=== PATIENT | male | born 1935 | race Caucasian/White ===

== ENCOUNTER → 2017-09-22 | Outpatient (CLI) | payer OTHER | LOC: BHFA 11:30 | PROVIDERS: ATTEND Internal Medicine Cardiovascular Disease | DX: I48.91 Unspecified atrial fibrillation (principal) ==

== ENCOUNTER → 2018-03-29 | Outpatient (CLI) | payer OTHER | LOC: BHFA 14:45 | PROVIDERS: ATTEND Internal Medicine Cardiovascular Disease | DX: I25.10 Atherosclerotic heart disease of native coronary artery without angina pectoris (principal); I10 Essential (primary) hypertension; I48.91 Unspecified atrial fibrillation ==

== ENCOUNTER 2018-05-29 06:36 | Inpatient (IN) | payer OTHER ==
[2018-05-29] MEDS ORDERED: ASPIRIN EC 325 MG TAB PO ONE (06:38)
[2018-05-29] MEDS ORDERED: diphenhydrAMINE 25 MG CAP PO ONE (06:38)
[2018-05-29] MEDS ORDERED: NS 1,000 ML IV ONE (06:38)
[2018-05-29] MEDS ORDERED: FAMOTIDINE 20 MG TAB PO ONE (06:38)
[2018-05-29] MEDS ORDERED: DIAZEPAM 5 MG TAB PO ONE (06:38)
[2018-05-29 07:26] LABS: PLATELET COUNT 88 10^3/uL (150-400)
[2018-05-29 07:35] LABS: INR 1.5 (0.83-1.16); PROTIME(PATIENT) 18.3 SEC (12.0-15.0)
[2018-05-29] MEDS ORDERED: fentaNYL 100 MCG/2 ML INJ ONE (07:36)
[2018-05-29] MEDS ORDERED: LIDOCAINE 1% 300 MG/30 ML SDV ONE (07:36)
[2018-05-29] MEDS ORDERED: MIDAZOLAM 2 MG/2 ML VIAL ONE (07:37)
--- NOTE | 2018-05-29 08:39 | PDPROPOC ---
Sedation Plan of Care Sedation Plan of Care: vital signs stable, mental status noted, patient educated of risks, benefits, alternatives, patient can tolerate sedation ASA Classification: ASA 2 Planned drugs: fentanyl, midazolam Mallampati Score: Class 1 Mallampati Reference Image: Patient passed 3-3-2 rule?: Yes
--- NOTE | 2018-05-29 08:39 | PDHPUP ---
History & Physical Update H&P update statement: This history and physical update is based on an assessment of the patient which was completed after admission or registration (within 24 hours), but prior to the surgery/procedure. H&P update: H&P reviewed & patient examined, no change in patient's condition since H&P completed
[2018-05-29] MEDS ORDERED: SUMAtriptan 50 MG TAB PO PRN (10:58)
[2018-05-29] MEDS ORDERED: TRIAMCINOLONE 0.1% 15 GM CRTUBE TP PRN (10:58)
[2018-05-29] MEDS ORDERED: ACETAMINOPHEN 325 MG TAB PO PRN (10:58)
[2018-05-29] MEDS ORDERED: SUMAtriptan 25 MG TAB PO PRN (12:30)
--- NOTE | 2018-05-29 12:58 | PDDXCAT ---
Diagnostic Cath Note - . Date: 05/29/18 Promotion Producer: Naman Indication: other (Heart failure with lower extremity swelling and renal failure ) - Procedure Procedure: right heart catheterization - Materials Left Heart Cath size: 5F Right Heart Cath size: 5F Right Heart Cath materials: PWP catheter - Findings-Right Heart Catheterization RA: 15 mm of mercury RV: 40/5 mm of mercury mean of 18 PA: 40/19 mm of mercury mean of 28 PAOP: 15 mm of mercury CO: 4.64 liters/minute Assessment: Lower extremity swelling associated with pulmonary artery pressure of 39/19 mm of mercury and wedge pressure 15 mm of mercury . Plan: Gentle hydration with creatinine of 2.0 and elevated BUN. Discontinue aldosterone inhibitor. Repeat assessment electrolytes in the morning. Patient Problems: Problems Problem Status Onset Dehiscence of fascia Acute Post-operative complication Acute
--- NOTE | 2018-05-29 13:39 | ECHO ---
[email or web address] [address] [address] Main: [phone] Fax: Transthoracic Echocardiogram Name: CARTER MERLOS MR#: [id number] Study Date: 05/29/2018 Study Time: 10:32 AM Date of : 1935 Age: 82 year(s) Height: 177.8 cm (70 in.) Weight: 83.46 kg (184 lb.) BSA: 2.01 m2 Gender: Male Examination: Limited Echo Indication: LTD to evaluate for constriction versus restriction Image Quality: Adequate Contrast: Requested by: Sachin Florence BP: 112 mmHg/77 mmHg Heart Rate: Rhythm: Indication: LTD to evaluate for constriction versus restriction Procedure Staff Fish And Wildlife Warden: Maya Powers [facility] Reading Physician: Flor Romero MD Requesting Provider: Conclusions: This is a directed study to assess for the presence of pericardial constriction verses restrictive pathophysiology. Normal LV systolic function. Paradoxical septal motion consistent with pacemaker activation but not consistent with interventricular independence. Mildly dilated right ventricle with preserved RV systolic function. Severe biatrial dilation. Doppler indices are not suggestive of either constrictive or restrictive physiology. There is no pericardial effusion or pericardial thickening. Measurements: Chambers Valvular Assessment AV/MV Valvular Assessment TV/PV Normal Normal Normal Name Value Range Name Value Range Name Value Range MV E Vmax: 0.78 m/s ( - ) MV A Vmax: 0.40 m/s ( - ) MV E/A: 1.95 ( - ) Continued Measurements: Chambers Valvular Assessment AV/MV Name Value Name Value LADs Lon.3 cm MV DecTime: 232 m/s LA Area: 33.2 cm2 MV E' Septal: 0.08 m/s MV E/E' Septal: 9.60 MV E/E' Lateral: 9.60 Findings: Left Ventricle: Normal global systolic LV function. There is paradoxic septal motion suggestive of bundle branch Patient: CARTER MERLOS Study Date: 05/29/2018 Page 1 of 2 10:32 AM block, paced cardiac rhythm, or prior cardiac surgery. Right Ventricle: Mildly dilated right ventricle. Normal RV function. Left Atrium: The left atrium is severely dilated. Right Atrium: The right atrium is severely dilated. Exam Comments: No pericardial effusion. No obvious thickening of the pericardium. No respiratory variation of the MV and TV inflow velocities. MV deceleration time 232msec. There is a small increase in the a wave in the hepatic doppler and an increase in the inspiratory forward velocities. Medial and lateral e' velocities are equal. (No Signature Object) Patient: CARTER MERLOS Study Date: 05/29/2018 Page 2 of 2 10:32 AM [id number]
[2018-05-29] MEDS: NS 1,000 ML IV SCH ×2 (14:00→20:28)
--- NOTE | 2018-05-29 15:57 | PDMN ---
Medical Necessity Medical necessity: MCG M190 Heart Failure, A-2 days: 82 yo s/p cardiac cath for indication of heart failure w/ renal failure w/ extremity swelling. Pulm artery pressure 39/19. Pt requiring O2 to keep sats>90% IVF for renal fx. Cont tele monitoring. Plt count 88. Admit to IP for ongoing tx and monitoring of the above per cardiology.
[2018-05-29] MEDS: DILTIAZEM CD 120 MG CAP PO SCH (20:28)
[2018-05-29] MEDS: PROPRANOLOL HCL 20 MG TAB PO SCH (20:28)
[2018-05-29] MEDS ORDERED: WARFARIN SODIUM 4 MG TAB PO SCH (21:00)
[2018-05-29] MEDS ORDERED: TAMSULOSIN HCL 0.4 MG CAP PO SCH (21:00)
[2018-05-30] MEDS: DILTIAZEM CD 120 MG CAP PO SCH (08:16)
[2018-05-30] MEDS: PROPRANOLOL HCL 20 MG TAB PO SCH (08:16)
[2018-05-30] MEDS ORDERED: ALLOPURINOL 300 MG TAB PO SCH (09:00)
[2018-05-30] MEDS ORDERED: CITALOPRAM 20 MG TAB PO SCH (09:00)
[2018-05-30] MEDS ORDERED: CHOLECALCIFEROL VIT D3 1,000 UNITS TAB PO SCH (09:00)
[2018-05-30] MEDS ORDERED: PRIMIDONE 50 MG TAB PO SCH (09:00)
--- NOTE | 2018-05-30 15:30 | ASMTCMCOM ---
CM Note CM Note Notes: Met with patient and to discuss disposition plan. Patient uses O2 at night at baseline, has supportive . They decline the need for HHC upon discharge. Case Management available for changes/needs. Plan: Anticipate Independent Date Signed: 05/30/2018 03:30 PM Electronically Signed By:Karol Lopez RN
[2018-05-30 16:09] VITALS: BP 104/74
--- NOTE | 2018-05-31 13:55 | PDDCSUM ---
Discharge Summary Discharge Summary: Date of admission 05/29/2018 Date of discharge 05/30/2018 Admission diagnosis: 1. Acute renal failure Discharge diagnosis: 1. Acute renal failure resolving 2. Atrial fibrillation with permanent pacemaker 3. Bilateral lower extremity swelling query lymphedema 4. Permanent pacemaker 5. Bladder cancer 6. Alcohol use Procedures done during this hospitalization right heart catheterization, echocardiogram for constriction/restriction, renal ultrasound, lower extremity ultrasound. Hospital course: Patient was admitted to the hospital electively after a diagnostic right heart catheterization. Patient was admitted for worsening lower extremity swelling and worsening renal function in the setting of diastolic heart failure, metastatic bladder cancer, high risk medication use including Aldactone, Lasix, Celebrex. Right heart catheterization showed normal right heart hemodynamics with mild pulmonary hypertension and normal to low filling pressures. Baseline creatinine was 2.0 with a BUN of over 50. Patient was administered 2 L of normal saline. Creatinine fell to 1.5 with marked improvement in clinical symptoms. Peripheral swelling persisted left greater than right. Ultrasound of the kidney showed them to be normal size. There is no hydronephrosis with a ureteral stent seen. Liver was significantly enlarged with associated gallstones and some nonspecific thickening of the gallbladder. On examination he did have some tenderness to deep palpation. Liver function tests within normal limits. He had no difficulty with p. O. Intake. Medications were adjusted. In particular we stopped his Aldactone, Celebrex, Lasix. His amlodipine was discontinued. Blood pressure and hemodynamics remained stable. Oxygenation remained stable. He of was up ambulating without limitations. He is discharged today in stable/improving condition with follow-up arranged with a lymphedema specialist to start working on drainage of the leg. He will follow up with me in 1 week with repeat basic metabolic panel. Questions were answered with him and his . Physical examination revealed blood pressure 106/70. Heart rate was 70 and paced. He had no JVP at 90 degrees. Chest was clear He was on supplemental oxygen His abdomen was distended and tympanitic. There was mild tenderness to deep palpation in the right upper quadrant. He had no rebound or guarding. Extremities revealed 3+ edema left greater than right. Femoral pulses were +2 and equal Puncture site in the right forearm was healing well without ecchymosis erythema or edema.
== END 2018-05-30 18:23 | disposition home or self-care (01) | DRG 683 ==
LOC: FCATH 06:36 → F2W 09:26 → OBSVTOIN 11:02 → F2W 11:55
PROVIDERS: ADMIT Internal Medicine Interventional Cardiology; ATTEND Internal Medicine Interventional Cardiology
PROC: 4A023N6 Measurement of Cardiac Sampling and Pressure, Right Heart, Percutaneous Approach (ICD-10-PCS; principal; 2018-05-29)
DX: N17.9 Acute kidney failure, unspecified (principal); I11.0 Hypertensive heart disease with heart failure; I50.30 Unspecified diastolic (congestive) heart failure; I48.91 Unspecified atrial fibrillation; I27.20 Pulmonary hypertension, unspecified; K80.20 Calculus of gallbladder without cholecystitis without obstruction; I25.10 Atherosclerotic heart disease of native coronary artery without angina pectoris; E78.5 Hyperlipidemia, unspecified; Z95.0 Presence of cardiac pacemaker
CPT/HCPCS: J1644; J2250; J3010

== ENCOUNTER 2018-06-27 14:58 | Inpatient (IN) | payer OTHER ==
[2018-06-27] MEDS ORDERED: TEMAZEPAM 15 MG CAP PO PRN (16:45)
[2018-06-27] MEDS ORDERED: ONDANSETRON DISINTEGRATING 4 MG TAB PO PRN (16:45)
[2018-06-27] MEDS ORDERED: ONDANSETRON 4 MG/2 ML VIAL IVP PRN (16:45)
[2018-06-27] MEDS ORDERED: FUROSEMIDE 100 MG/10 ML VIAL IVP ONE (16:48)
--- NOTE | 2018-06-27 17:11 | PDCARPN ---
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 #. anasarca: good output with single dose of IV lasix [address] Florence will give an additional 80 mg IV lasx due to ongoing edema #. pulmonary htn: 05/29/18 RHC shows RA 15, RV 15/5 mean 18, PA 40/19 mean 28, wedge 15 c/w mild- mod pulmonary htn continue diuresis #. VHD: last echo from 03/19 shows stable mod AR, severe TR, mild MR will follow with serial echoes #. urothelial CA: followed at [facility] #. permanent AF: rates appear controlled continue Warfarin and Dilt CD #. CKD: Cr appears stable BMP ordered for this AM #. lymphedema: has been seeing lymphedema specialist in O/P setting #. DVT ppx: Warfarin and early ambulation #. FEN: K+ protocol/ cardiac diet/ fluid restrict #. dispo: ongoing inpt due to need for IV diuresis 06/28/18 09:43 Subjective: No pnd/orthopnea currently. No cp/palps, presyncope/syncope. Time Spent with Patient: greater than 25 minutes Time Spent with Patient: Greater than 25 minutes spent on this patients care, greater than 50% of time spent counseling, educating, and coordinating care regarding the above mentioned plan. Result Diagrams: 06/27/18 17:25 06/27/18 17:25 EKG: V-paced Echocardiogram: reviewed - Physical Exam Constitutional: no apparent distress Eyes: anicteric sclera Ears, Nose, Mouth, Throat: moist mucous membranes Cardiovascular: systolic murmur, irregularly irregular Respiratory: clear to auscultate bilat, no crackles Gastrointestinal: normoactive bowel sounds Genitourinary: No montelongo in urethra Skin: other (3+ edema) Neurologic: AAOx3 Psychiatric: cooperative, interactive ICD10 Worksheet Patient Problems: Problems Problem Status Onset Chronic Disease Mgmt/Transitional Care Acute Dehiscence of fascia Acute Post-operative complication Acute
[2018-06-27 19:20] LABS: PLATELET COUNT 90 10^3/uL (150-400)
[2018-06-27 19:28] LABS: INR 2.59 (0.83-1.16); PROTIME(PATIENT) 27.7 SEC (12.0-15.0)
[2018-06-27] MEDS: WARFARIN SODIUM 4 MG TAB PO SCH (20:31)
[2018-06-27] MEDS: PROPRANOLOL HCL 40 MG TAB PO SCH (20:32)
[2018-06-27] MEDS ORDERED: PRIMIDONE 50 MG TAB PO SCH (22:00)
[2018-06-28 05:08] LABS: INR 2.74 (0.83-1.16); PROTIME(PATIENT) 28.9 SEC (12.0-15.0)
[2018-06-28] MEDS ORDERED: ACETAMINOPHEN 325 MG TAB PO PRN (07:23)
[2018-06-28] MEDS: CITALOPRAM 20 MG TAB PO SCH (08:43)
[2018-06-28] MEDS: ALLOPURINOL 300 MG TAB PO SCH (08:43)
[2018-06-28] MEDS: MULTIVITAMINS 1 EACH TAB PO SCH (08:43)
[2018-06-28] MEDS: CHOLECALCIFEROL VIT D3 2,000 UNITS TAB/CAP PO SCH (08:43)
[2018-06-28] MEDS: PSYLLIUM METAMUCIL 1 PKT PO SCH (08:43)
[2018-06-28] MEDS ORDERED: PROPRANOLOL HCL 60 MG PO SCH (09:00)
[2018-06-28] MEDS: PRIMIDONE 50 MG TAB PO SCH ×2 (09:23→20:58)
[2018-06-28] MEDS: PROPRANOLOL HCL 40 MG TAB PO SCH ×2 (09:24→20:57)
--- NOTE | 2018-06-28 09:36 | ASMTCMCOM ---
CM Note CM Note Notes: Pt is a 82 year old M, lives with who is supportive. Presents with CHF, edema, and renal insufficiency. Pt was last discharged independent with home O2 in May of this year. PT/OT evals are pending. Pt may benefit from home care. CM to follow. Plan: TBD Date Signed: 06/28/2018 09:36 AM Electronically Signed By:ADRIENNE Lloyd
[2018-06-28] MEDS ORDERED: PROTOCOL POTASSIUM 1 DOSE MISC PRN (09:42)
--- NOTE | 2018-06-28 10:07 | PDCARPN ---
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 #. anasarca: good output with single dose of IV lasix [address] Florence will give an additional 80 mg IV lasx due to ongoing edema #. pulmonary htn: 05/29/18 RHC shows RA 15, RV 15/5 mean 18, PA 40/19 mean 28, wedge 15 c/w mild- mod pulmonary htn continue diuresis #. VHD: last echo from 03/19 shows stable mod AR, severe TR, mild MR will follow with serial echoes #. urothelial CA: followed at [facility] #. permanent AF: rates appear controlled continue Warfarin and Dilt CD #. CKD: Cr appears stable BMP ordered for this AM #. lymphedema: has been seeing lymphedema specialist in O/P setting #. DVT ppx: Warfarin and early ambulation #. FEN: K+ protocol/ cardiac diet/ fluid restrict #. dispo: ongoing inpt due to need for IV diuresis 06/28/18 10:06 Objective: Vital Signs (8 Hrs) Temp Pulse Resp BP Pulse Ox 06/28/18 08:00 97.5 F 72 13 157/100 H 97 06/28/18 03:36 97.7 F 71 12 149/99 H 94 Intake/Output (24 Hrs) 06/27/18 06/28/18 06/29/18 05:59 05:59 05:59 Intake Total 350 Output Total 4100 250 Balance -3750 -250 Intake: Oral (ml) 350 Output: Urine (ml) 4100 250 Urinal 4100 250 Other: Weight 88.7 kg Number of Voids Urinal 1 Result Diagrams: 06/27/18 17:25 06/27/18 17:25 Cardiac Labs: Cardiac Lab Results (72 Hrs) 06/27/18 17:25 Troponin I 0.014 Telemetry: AF rate controlled, V-paced - Physical Exam Constitutional: no apparent distress Eyes: PERRL, anicteric sclera Ears, Nose, Mouth, Throat: moist mucous membranes Cardiovascular: irregularly irregular Respiratory: clear to auscultate bilat Genitourinary: other (penile/scrotal edema) Skin: other (3+ edema) Neurologic: AAOx3 Psychiatric: cooperative, interactive ICD10 Worksheet Patient Problems: Problems Problem Status Onset Chronic Disease Mgmt/Transitional Care Acute Dehiscence of fascia Acute Post-operative complication Acute
[2018-06-28] MEDS ORDERED: FUROSEMIDE 100 MG/10 ML VIAL IVP ONE (10:34)
[2018-06-28] MEDS: DILTIAZEM CD 120 MG CAP PO SCH ×2 (10:53→20:56)
[2018-06-28] MEDS: PANTOPRAZOLE SODIUM 20 MG PO SCH (11:39)
[2018-06-28] MEDS ORDERED: POTASSIUM CL 10 MEQ TAB PO ONE ×2 (12:27→21:11)
--- NOTE | 2018-06-28 12:28 | PDMN ---
Medical Necessity Medical necessity: Pt meets IP criteria per PA & MCG M-190; est los >2 mn for eval/tx of heart failure w/anasarca & pulmonary htn; admit for further monitoring & IV diuresis; hx metastatic urothelial cancer, CKD, AFIB on AC, lymphedema, VHD; per progress note & order 06/27/18
[2018-06-28] MEDS: FUROSEMIDE 100 MG/10 ML VIAL IVP SCH (15:44)
--- NOTE | 2018-06-28 16:00 | PDHOSCONS ---
History and Physical - Chief Complaint LE Edema - History of Present Illness Flaco Carrera is a 82 yo M with a PMHx of dCHF, permanent A fib on Coumadin s /p PPM, metastatic bladder cancer, VHD with mod AR, severe TR, mild-mod Pulmonary HTN, essential tremor, GERD, gout, CKD, lymphedema who presented to [facility] for edema. He reports that recently he has had increased swelling in his lower legs, abdomen, and scrotum/penis. He also reports weight gain as well as orthopnea. He follows with Dr. Florence as his lead ramp service man, he is on 20 mg Lasix qd at home. He also follows with Dr. Radha Jones of as his primary oncologist. His last dose of chemotherapy was 3 weeks ago. History Information - Allergies/Home Medication List Allergies/Adverse Reactions: lorazepam [From Ativan] Allergy (Verified 05/26/18 10:09) agitated Home Medications: Allopurinol [Allopurinol 300 MG (RX)] 300 mg PO DAILY 06/09/15 [Last Taken 06/27] Multivitamins [Multivitamin (*)] 1 each PO DAILY 06/09/15 [Last Taken 06/27/18] Primidone [Mysoline] 150 mg PO DAILY 06/09/15 [Last Taken 06/27/18] Propranolol HCl 60 mg PO BID 06/09/15 [Last Taken 06/27/18] Tamsulosin HCl [Flomax 0.4 MG (*)] 0.4 mg PO HS 06/09/15 [Last Taken 06/26/18] Warfarin Sodium [Coumadin 4MG (*)] 8 mg PO MOWE@21 06/09/15 [Last Taken 06/26/18 ] Acetaminophen [Tylenol 325mg (*)] 325 mg PO DAILY PRN 05/26/18 [Last Taken Unknown] Citalopram [CeleXA 20 MG] 20 mg PO DAILY 05/26/18 [Last Taken 06/27/18] Diltiazem HCl [Cartia Xt] 120 mg PO BID 05/26/18 [Last Taken 06/27/18] Primidone [Mysoline 50mg (RX)] 200 mg PO HS 05/26/18 [Last Taken 06/26/18] SUMAtriptan [Imitrex 50 MG (*)] 0.25 tab PO Q2H PRN MDD 100mg 05/26/18 [Last Taken Unknown] Cholecalciferol Vit D3 [Vitamin D3 2000 units tab (OTC)] 2,000 units PO DAILY [Last Taken 06/27/18] Furosemide [Lasix 20 MG (*)] 20 mg PO DAILY 06/27/18 [Last Taken 06/27/18] Pantoprazole Sodium 20 mg PO DAILY 06/27/18 [Last Taken 06/27/18] Psyllium Husk (with Sugar) [Metamucil Packet] 1 each PO DAILY 06/27/18 [Last Taken Unknown] Warfarin Sodium [Coumadin 4MG (*)] 6 mg PO SUTUTHFRSA@21 06/27/18 [Last Taken ] I have personally reviewed and updated: family history, medical history, social history, surgical history - Past Medical History atrial fibrillation, cancer, CHF Additional medical history: gout, VHD - Surgical History Reports: cancer surgery - Family History Positive for: non-pertinent - Social History Smoking Status: Never smoked Review of Systems Review of Systems: ROS: 10pt was reviewed & negative except for what was stated in HPI & below Physical Exam Physical Exam: Temp Pulse Resp BP Pulse Ox 36.6 C 74 12 136/87 H 95 06/28/18 12:00 06/28/18 12:00 06/28/18 12:00 06/28/18 12:00 06/28/18 12:00 Constitutional: no apparent distress Eyes: PERRL Ears, Nose, Mouth, Throat: moist mucous membranes Cardiovascular: regular rate and rhythym, edema (3+ edema b/l LE) Respiratory: no respiratory distress Gastrointestinal: distension Skin: warm Musculoskeletal: full muscle strength Neurologic: AAOx3 Psychiatric: interacting appropriately Lab Data & Imaging Review 06/27/18 17:25 06/28/18 10:45 WBC 3.91 10^3/uL (3.80-9.50) 06/27/18 17:25 RBC 3.53 10^6/uL (4.40-6.38) L 06/27/18 17:25 Hgb 12.8 g/dL (13.7-17.5) L 06/27/18 17:25 Hct 37.2 % (40.0-51.0) L 06/27/18 17:25 MCV 105.4 fL (81.5-99.8) H 06/27/18 17:25 MCH 36.3 pg (27.9-34.1) H 06/27/18 17:25 MCHC 34.4 g/dL (32.4-36.7) 06/27/18 17:25 RDW 15.2 % (11.5-15.2) 06/27/18 17:25 Plt Count 90 10^3/uL (150-400) L 06/27/18 17:25 MPV 12.9 fL (8.7-11.7) H 06/27/18 17:25 Neut % (Auto) 58.5 % (39.3-74.2) 06/27/18 17:25 Lymph % (Auto) 20.2 % (15.0-45.0) 06/27/18 17:25 [place] % (Auto) 14.1 % (4.5-13.0) H 06/27/18 17:25 Eos % (Auto) 5.9 % (0.6-7.6) 06/27/18 17:25 Baso % (Auto) 1.0 % (0.3-1.7) 06/27/18 17:25 Nucleat RBC Rel Count 0.0 % (0.0-0.2) 06/27/18 17:25 Absolute Neuts (auto) 2.29 10^3/uL (1.70-6.50) 06/27/18 17:25 Absolute Lymphs (auto) 0.79 10^3/uL (1.00-3.00) L 06/27/18 17:25 Absolute Monos (auto) 0.55 10^3/uL (0.30-0.80) 06/27/18 17:25 Absolute Eos (auto) 0.23 10^3/uL (0.03-0.40) 06/27/18 17:25 Absolute Basos (auto) 0.04 10^3/uL (0.02-0.10) 06/27/18 17:25 Absolute Nucleated RBC 0.00 10^3/uL (0-0.01) 06/27/18 17: Immature Gran % 0.3 % (0.0-1.1) 06/27/18 17:25 Immature Gran # 0.01 10^3/uL (0.00-0.10) 06/27/18 17:25 PT 28.9 SEC (12.0-15.0) H 06/28/18 03:26 INR 2.74 (0.83-1.16) H 06/28/18 03:26 Sodium 138 mEq/L (135-145) 06/28/18 10:45 Potassium 3.2 mEq/L (3.5-5.2) L 06/28/18 10:45 Chloride 100 mEq/L (97-110) 06/28/18 10:45 Carbon Dioxide 28 mEq/l (22-31) 06/28/18 10:45 Anion Gap 10 mEq/L (6-14) 06/28/18 10:45 BUN 29 mg/dL (7-23) H 06/28/18 10:45 Creatinine 1.2 mg/dL (0.7-1.3) 06/28/18 10:45 Estimated GFR 58 06/28/18 10:45 Glucose 173 mg/dL (70-100) H 06/28/18 10:45 Calcium 8.7 mg/dL (8.5-10.4) 06/28/18 10:45 Phosphorus 3.0 mg/dL (2.5-4.5) 06/27/18 17:25 Magnesium 2.0 mg/dL (1.6-2.3) 06/27/18 17:25 Total Bilirubin 1.2 mg/dL (0.1-1.4) 06/27/18 17:25 AST 45 IU/L (17-59) 06/27/18 17:25 ALT 35 IU/L (21-72) 06/27/18 17:25 Alkaline Phosphatase 335 IU/L (38-126) H 06/27/18 17:25 Troponin I 0.014 ng/mL (0.000-0.034) 06/27/18 17:25 NT-Pro-B Natriuret Pep 1140 pg/mL (0-450) H 06/27/18 17:25 Total Protein 6.8 g/dL (6.3-8.2) 06/27/18 17:25 Albumin 3.8 g/dL (3.5-5.0) 06/27/18 17:25 TSH 3.090 uIU/mL (0.465-4.680) 06/27/18 17:25 Urine Color YELLOW 06/27/18 19:15 Urine Appearance CLEAR 06/27/18 19:15 Urine pH 6.0 (5.0-7.5) 06/27/18 19:15 Ur Specific [place] 1.012 (1.002-1.030) 06/27/18 19:15 Urine Protein NEGATIVE (NEGATIVE) 06/27/18 19:15 Urine Ketones NEGATIVE (NEGATIVE) 06/27/18 19:15 Urine Blood NEGATIVE (NEGATIVE) 06/27/18 19:15 Urine Nitrate NEGATIVE (NEGATIVE) 06/27/18 19:15 Urine Bilirubin NEGATIVE (NEGATIVE) 06/27/18 19:15 Urine Urobilinogen NEGATIVE EU (0.2-1.0) 06/27/18 19:15 Ur Leukocyte Esterase NEGATIVE (NEGATIVE) 06/27/18 19:15 Urine Glucose NEGATIVE (NEGATIVE) 06/27/18 19:15 Assessment & Plan Assessment: 82 yo M with a PMHx of dCHF, permanent A fib on Coumadin s/p PPM, metastatic bladder cancer, VHD with mod AR, severe TR, mild-mod Pulmonary HTN, essential tremor, GERD, gout, CKD, lymphedema who was admitted by Cardiology for volume overload. #Exacerbation of dCHF - Cardiology admitted patient, ordered IVP Lasix 80 mg BID - Continue to monitor I/O, BMP, daily weights # Metastatic Bladder Cancer - With mets to ureters and lymph nodes per patient - Follows with Dr. Radha Jones at the [facility] - Reports last CT 3 months ago and last chemotherapy 3 weeks ago - Questionable if metastases are contributing to edema, possibly obstructing lymphatic flow - Albumin WNL on admission, unlikely contributing to edema - Consider oncology consult for further evaluation if no improvement with diuresis #Neck Pain (Acute) - Reports 1 month of neck pain, normal ROM on exam - Will trial Flexeril for muscle spasm *Gout - Continue home Allopurinol *Essential Tremor - Continue home Propranolol and Primidone # CKD - Cr 1/2 on admission, 2.0, 1.6 in the past - Continue to monitor with diuresis Thank you for the consult. We will continue to follow along during patient's hospitalization.
[2018-06-28] MEDS ORDERED: CYCLOBENZAPRINE 10 MG TAB PO PRN (16:21)
[2018-06-28] MEDS ORDERED: CARBOXYMETHYLCELLULOSE 1% 0.4 ML DROPERETTE EACHEYE PRN (16:21)
[2018-06-28] MEDS: TAMSULOSIN HCL 0.4 MG CAP PO SCH (20:56)
[2018-06-28] MEDS ORDERED: WARFARIN SODIUM 4 MG TAB PO SCH (21:00)
[2018-06-29 04:38] LABS: INR 2.63 (0.83-1.16); PROTIME(PATIENT) 26.8 SEC (12.0-15.0)
[2018-06-29] MEDS: ACETAMINOPHEN 325 MG TAB PO PRN ×2 (08:25→15:17)
[2018-06-29] MEDS: PRIMIDONE 50 MG TAB PO SCH ×2 (08:26→20:38)
[2018-06-29] MEDS: CITALOPRAM 20 MG TAB PO SCH (08:26)
[2018-06-29] MEDS: PROPRANOLOL HCL 40 MG TAB PO SCH ×2 (08:26→20:37)
[2018-06-29] MEDS: CHOLECALCIFEROL VIT D3 2,000 UNITS TAB/CAP PO SCH (08:28)
[2018-06-29] MEDS: DILTIAZEM CD 120 MG CAP PO SCH ×2 (08:28→20:13)
[2018-06-29] MEDS: MULTIVITAMINS 1 EACH TAB PO SCH (08:28)
[2018-06-29] MEDS: ALLOPURINOL 300 MG TAB PO SCH (08:30)
[2018-06-29] MEDS: PANTOPRAZOLE SODIUM 20 MG PO SCH (08:31)
[2018-06-29] MEDS: PSYLLIUM METAMUCIL 1 PKT PO SCH (08:31)
[2018-06-29] MEDS: SUMAtriptan 25 MG TAB PO PRN ×2 (08:34→15:31)
[2018-06-29] MEDS ORDERED: POTASSIUM CL 10 MEQ TAB PO ONE ×2 (08:58→19:35)
--- NOTE | 2018-06-29 09:26 | PDCARPN ---
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 #. anasarca: good output with 80IV BID of Lasix reviewed with Dr. Florence pt appears to still need current dosing due to ongoign scrotal/penile edema continue IV at 80 BID #. pulmonary htn: 05/29/18 RHC shows RA 15, RV 15/5 mean 18, PA 40/ mean 28, wedge 15 c/w mild- mod pulmonary htn continue diuresis #. VHD: last echo from 03/19 shows stable mod AR, severe TR, mild MR will follow with serial echoes #. urothelial CA: followed at [facility] #. permanent AF: rates appear controlled continue Warfarin and Dilt CD #. CKD: Cr appears stable BMP will be followed #. lymphedema: has been seeing lymphedema specialist in O/P setting he would like to see Steph Walker/PT at O/P rehab [facility] appreciate hospitalist consult #. DVT ppx: Warfarin and early ambulation #. FEN: K+ protocol/ cardiac diet/ fluid restrict #. dispo: ongoing inpt due to need for IV diuresis 06/29/18 09:27 Subjective: Feels that scrotal edema is improving. Notes some diminishment in urination. No dyspnea currently. Reviewed/Discussed With: other (Clemente, pharmacy, Juan Jose RN) Objective: Vital Signs (8 Hrs) Temp Pulse Resp BP Pulse Ox 06/29/18 07:53 97.9 F 77 18 131/86 H 94 06/29/18 04:00 98.2 F 70 18 115/75 91 L Intake/Output (24 Hrs) 06/28/18 06/29/18 06/30/18 05:59 05:59 05:59 Intake Total 350 300 Output Total 4100 4295 Balance -3750 -3995 Intake: Oral (ml) 350 300 Output: Urine (ml) 4100 4295 Urinal 4100 4295 Other: Weight 88.7 kg 84.1 kg Number of Voids Urinal 1 Result Diagrams: 06/27/18 17:25 06/29/18 03:22 Cardiac Labs: Cardiac Lab Results (72 Hrs) 06/27/18 17:25 Troponin I 0.014 Telemetry: reviewed - AF V-paced - Physical Exam Constitutional: no apparent distress Eyes: anicteric sclera Cardiovascular: regular rate and rhythm, systolic murmur Respiratory: clear to auscultate bilat, no crackles Gastrointestinal: normoactive bowel sounds Genitourinary: other (penile/scrotal edema) Skin: other (2+- 3+ edema) Neurologic: AAOx3 Psychiatric: cooperative, interactive ICD10 Worksheet Patient Problems: Problems Problem Status Onset Chronic Disease Mgmt/Transitional Care Acute Dehiscence of fascia Acute Post-operative complication Acute
[2018-06-29] MEDS: FUROSEMIDE 100 MG/10 ML VIAL IVP SCH ×2 (09:35→15:16)
--- NOTE | 2018-06-29 14:40 | ASMTCMCOM ---
CM Note CM Note Notes: After review of chart, anticipate patient will be safe to discharge home with . CM is available should need arise. Plan: Likely independent with outpatient rehab follow-up. Date Signed: 06/29/2018 02:40 PM Electronically Signed By:Karol Lopez RN
--- NOTE | 2018-06-29 16:30 | HOSPPROG ---
Hospitalist Progress Note Assessment/Plan: # R sided CHF - marked anasarca; ongoing diuresis per cards # a-fib/ppm - warfarin and dilt # urothelial ca, metastatic - follows at [facility] - last chemo 3 weeks ago # lymphedema - follow with outpatient specialist # essential tremor - primidone and propranolol # gout - allopurinol # CKD - baseline Subjective: swelling better today Objective: Vital Signs Temp Pulse Resp BP Pulse Ox 36.5 C 72 16 105/69 93 06/29/18 15:00 06/29/18 15:00 06/29/18 15:00 06/29/18 15:00 06/29/18 15:00 Laboratory Results 06/27/18 17:25 06/29/18 03:22 06/28/18 06/29/18 06/30/18 05:59 05:59 05:59 Intake Total 163 111 0573 Output Total 4100 4295 300 Balance -3750 -3995 940 PT 26.8 SEC (12.0-15.0) H 06/29/18 03:22 INR 2.63 (0.83-1.16) H 06/29/18 03:22 chart reviewed CXR personally reviewed - Physical Exam Constitutional: no apparent distress, appears nourished Cardiovascular: regular rate and rhythym, no murmur, rub, or gallop Respiratory: no respiratory distress, no rales or rhonchi, clear to auscultation Gastrointestinal: normoactive bowel sounds, soft, non-tender abdomen, no palpable masses Musculoskeletal: other (3+ bilat LE edema to mid thigh) ICD10 Worksheet Patient Problems: Problems Problem Status Onset Chronic Disease [facility]/Transitional Care Acute Dehiscence of fascia Acute Post-operative complication Acute
[2018-06-29] MEDS: TAMSULOSIN HCL 0.4 MG CAP PO SCH (20:13)
[2018-06-29] MEDS: WARFARIN SODIUM 4 MG TAB PO SCH (20:14)
[2018-06-30 03:37] LABS: INR 3.08 (0.83-1.16); PROTIME(PATIENT) 31.6 SEC (12.0-15.0)
[2018-06-30] MEDS: ACETAMINOPHEN 325 MG TAB PO PRN (07:29)
[2018-06-30] MEDS: SUMAtriptan 25 MG TAB PO PRN (07:43)
[2018-06-30] MEDS: CITALOPRAM 20 MG TAB PO SCH (09:50)
[2018-06-30] MEDS: FUROSEMIDE 100 MG/10 ML VIAL IVP SCH (09:50)
[2018-06-30] MEDS: PSYLLIUM METAMUCIL 1 PKT PO SCH (09:50)
[2018-06-30] MEDS: DILTIAZEM CD 120 MG CAP PO SCH ×2 (09:50→20:17)
[2018-06-30] MEDS: CHOLECALCIFEROL VIT D3 2,000 UNITS TAB/CAP PO SCH (09:51)
[2018-06-30] MEDS: PANTOPRAZOLE SODIUM 20 MG PO SCH (09:51)
[2018-06-30] MEDS: MULTIVITAMINS 1 EACH TAB PO SCH (09:51)
[2018-06-30] MEDS: ALLOPURINOL 300 MG TAB PO SCH (09:51)
[2018-06-30] MEDS: PROPRANOLOL HCL 40 MG TAB PO SCH ×2 (10:09→20:12)
[2018-06-30] MEDS: PRIMIDONE 50 MG TAB PO SCH ×2 (10:09→20:12)
[2018-06-30] MEDS ORDERED: POTASSIUM CL 10 MEQ TAB PO ONE ×2 (12:20→19:39)
--- NOTE | 2018-06-30 12:43 | HOSPPROG ---
Hospitalist Progress Note Assessment/Plan: # R sided CHF - marked anasarca; ongoing diuresis per cards - there may be some component of lymphedema - i think for now we should continue diuresis as his edema is improving # a-fib/ppm - warfarin and dilt - recheck inr tomorrow # urothelial ca, metastatic - follows at - last chemo 3 weeks ago # lymphedema - follow with outpatient specialist - he is going to establish with a new PT # essential tremor - primidone and propranolol # gout - allopurinol # CKD - baseline Subjective: feels like his legs are slightly better Objective: Vital Signs Temp Pulse Resp BP Pulse Ox 36.4 C 76 19 105/73 93 06/30/18 11:12 06/30/18 11:12 06/30/18 11:12 06/30/18 11:12 06/30/18 11:12 Laboratory Results 06/27/18 17:25 06/30/18 03:10 06/29/18 06/30/18 07/01/18 05:59 05:59 05:59 Intake Total 300 1540 Output Total 4295 1975 Balance -3995 -435 PT 31.6 SEC (12.0-15.0) H 06/30/18 03:10 INR 3.08 (0.83-1.16) H 06/30/18 03:10 discussed with Genevieve - Physical Exam Constitutional: no apparent distress, appears nourished Cardiovascular: regular rate and rhythym, systolic murmur, No irregularly irregular, No diastolic murmur Respiratory: no respiratory distress, no rales or rhonchi, clear to auscultation Gastrointestinal: normoactive bowel sounds, soft, non-tender abdomen, no palpable masses Musculoskeletal: other (3+ bilat LE to knees) ICD10 Worksheet Patient Problems: Problems Problem Status Onset Chronic Disease Mgmt/Transitional Care Acute Dehiscence of fascia Acute Post-operative complication Acute
[2018-06-30] MEDS ORDERED: FUROSEMIDE 100 MG/10 ML VIAL IVP SCH (14:10)
--- NOTE | 2018-06-30 14:14 | PDCARPN ---
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 #. anasarca: good output with 80IV BID of Lasix but this has slowed reviewed with Dr. Florence/ will increase Lasix to [address] Florence would like to avoid additional diuretics such as Spironolactone or thiazides due to recent EVELIO #. pulmonary htn: 05/29/18 RHC shows RA 15, RV 15/5 mean 18, PA 40/ mean 28, wedge 15 c/w mild- mod pulmonary htn and mild volume overload continue diuresis #. VHD: last echo from 03/19 shows stable mod AR, severe TR, mild MR will follow with serial echoes #. urothelial CA: followed at [facility] he reports that he would be agreeable to have CTA abdomen here if that were deemed necessary/ he does have CTA scheduled with Dr. Tsai at [facility] 07/14 #. permanent AF: rates appear controlled continue Warfarin and Dilt CD #. CKD: Cr appears stable BMP will be followed #. lymphedema: has been seeing lymphedema specialist in O/P setting he would like to see Steph Walker/PT at O/P rehab [facility] appreciate hospitalist consult #. DVT ppx: Warfarin and early ambulation #. FEN: K+ protocol/ cardiac diet/ fluid restrict #. dispo: ongoing inpt due to need for IV diuresis 06/30/18 14:11 Subjective: Notes scrotal edema feels better. No cp, dyspnea. Reviewed/Discussed With: hospitalist (Dr. Dunaway) Objective: Vital Signs (8 Hrs) Temp Pulse Resp BP Pulse Ox 06/30/18 11:12 97.5 F 76 19 105/73 93 06/30/18 07:25 98.1 F 73 19 132/81 H 93 Intake/Output (24 Hrs) 06/29/18 06/30/18 07/01/18 05:59 05:59 05:59 Intake Total 300 1540 Output Total 4295 1974 Balance -3205 -865 Intake: Oral (ml) 300 1540 Output: Urine (ml) 4295 1974 Urinal 4291974 Other: Weight 84.1 kg 83.1 kg Intake Quantity Yes Sufficient Number of Voids Urinal 1 Result Diagrams: 06/27/18 17:25 06/30/18 03:10 Cardiac Labs: Cardiac Lab Results (72 Hrs) 06/27/18 17:25 Troponin I 0.014 Telemetry: AF - Physical Exam Constitutional: no apparent distress Eyes: anicteric sclera Ears, Nose, Mouth, Throat: moist mucous membranes Cardiovascular: regular rate and rhythm Respiratory: clear to auscultate bilat, no crackles Gastrointestinal: normoactive bowel sounds, other (mild distention) Neurologic: AAOx3 Psychiatric: cooperative, interactive ICD10 Worksheet Patient Problems: Problems Problem Status Onset Chronic Disease Mgmt/Transitional Care Acute Dehiscence of fascia Acute Post-operative complication Acute
--- NOTE | 2018-06-30 15:00 | ASMTCMCOM ---
CM Note CM Note Notes: Therapies are recommending home with outpatient follow-up. Patient to d/c independent. CM available if needs arise. Date Signed: 06/30/2018 02:59 PM Electronically Signed By:Verona Floyd LCSW
[2018-06-30] MEDS: FUROSEMIDE 120 MG in D5W 50 ML IV SCH (16:25)
[2018-06-30] MEDS: TAMSULOSIN HCL 0.4 MG CAP PO SCH (20:11)
[2018-06-30] MEDS ORDERED: WARFARIN SODIUM 4 MG TAB PO ONE (21:00)
[2018-07-01] MEDS: ACETAMINOPHEN 325 MG TAB PO PRN ×2 (01:47→12:43)
[2018-07-01] MEDS: SUMAtriptan 25 MG TAB PO PRN ×2 (01:47→12:44)
[2018-07-01 04:44] LABS: INR 2.92 (0.83-1.16)
[2018-07-01] MEDS ORDERED: POTASSIUM CL 10 MEQ TAB PO ONE ×2 (07:35→20:09)
--- NOTE | 2018-07-01 09:24 | PDCARPN ---
Cardiology Progress Note Chief Complaint: Patient states he would like to go home. He feels he has had significant improvement. 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 ECHO 03/29/2018: Normal LV size with normal LV systolic function, EF 56%. No regional wall motion abnormalities. Grade 2 diastolic dysfunction. LA is severely dilated, RA is severely dilated, mild MR, moderate AI, severe TR, RVSP of 35 mm Hg, dilated ascending aorta of 4.0 cm. RHC 05/29/2018: RA 15, RV 40/5 with mean 18, PA 40/19 with a mean of 28 PA Ob of 15 mm Hg CO 4.64 liters/minute. 07/01/2018: He reports no chest pain or pressure. Reports shortness of breath has improved. Continues to have increased peripheral edema to both lower extremities. Scrotal/penile edema has resolved. O>I, weight is down approximately 0.4 kg from yesterday. INR therapeutic at 2.92, mild drop chloride at 96 CO2 33, BUN 28, creatinine 1.3. Transfer text. 1. anasarca: Good output with Lasix at 120 mg p.o. Twice daily. CO2 starting to rise, will continue to monitor. Continue patient on electrolyte protocol. Consider transitioning to oral Lasix in the next day or 2. Dr. Florence would like to avoid additional diuretics such as Spironolactone or thiazides due to recent EVELIO 2. pulmonary htn: Recent heart catheterization showing pulmonary systolic pressure 40 mm Hg. IV diuresis. 3. VHD: last echo from 03/19 shows stable mod AR, severe TR, mild MR will follow with serial echoes 4. urothelial CA: followed at [facility] he reports that he would be agreeable to have CTA abdomen here if that were deemed necessary/ he does have CTA scheduled with Dr. Tsai at [facility] 07/14 5. permanent AF: Rate control. INR therapeutic. Continue on warfarin. 6. Sick sinus syndrome: Remote ppm implantation. 100% ventricular paced, underlying rhythm atrial fibrillation 7. CKD: Cr appears stable, continue to follow-up. 8. lymphedema: has been seeing lymphedema specialist in O/P setting he would like to see Steph Walker/PT at O/P rehab [facility] appreciate hospitalist consult 9. DVT ppx: Warfarin and early ambulation 10. FEN: K+ protocol/ cardiac diet/ fluid restrict 11. dispo: ongoing inpt due to need for IV diuresis 07/01/18 09:23 Subjective: Patient denies of any chest pressure or pain. Reports no significant shortness of breath. Feels peripheral edema has improved. Denies of any palpitations, lightheadedness, near-syncope or syncopal events. Reviewed/Discussed With: other (Dr Romero) Objective: Vital Signs (8 Hrs) Temp Pulse Resp BP Pulse Ox 07/01/18 08:00 36.7 C 76 19 117/79 97 07/01/18 03:34 36.2 C 71 16 109/72 92 Intake/Output (24 Hrs) 06/30/18 07/01/18 07/02/18 05:59 05:59 05:59 Intake Total 1540 275 Output Total 1974 2550 Balance -435 -2063 Intake: Oral (ml) 1540 200 IV Infused (ml) 75 Furosemide 120 mg In D5w 75 50 ml @ 124 mls/hr IV BIDDIUR [facility] Rx#: [id number] Output: Urine (ml) 1974 2550 Urinal 1974 2550 Other: Weight 83.1 kg 82.7 kg Intake Quantity Yes Sufficient Number of Voids Urinal 1 Result Diagrams: 06/27/18 17:25 07/01/18 03:25 - Physical Exam Constitutional: no apparent distress Ears, Nose, Mouth, Throat: moist mucous membranes Cardiovascular: regular rate and rhythm, no rubs, no gallops, systolic murmur (2 /6 LSB), jugular vein distention (4-5 cm above sternal notch.), pulses symmetric bilat, No carotid bruit Peripheral Pulses: 1+: dorsalis-pedis (R), dorsalis-pedis (L), 2+: carotid (R), carotid (L) Respiratory: other (Diminished in bases, no rhonchi, rales, wheezing noted.) Gastrointestinal: normoactive bowel sounds Skin: warm, No no edema (+3 peripheral edema bilateral lower extremities to knees.) Neurologic: AAOx3 Psychiatric: cooperative, interactive, following commands ICD10 Worksheet Patient Problems: Problems Problem Status Onset Chronic Disease Mgmt/Transitional Care Acute Dehiscence of fascia Acute Post-operative complication Acute
[2018-07-01] MEDS: DILTIAZEM CD 120 MG CAP PO SCH ×2 (09:29→20:44)
[2018-07-01] MEDS: ALLOPURINOL 300 MG TAB PO SCH (09:29)
[2018-07-01] MEDS: CHOLECALCIFEROL VIT D3 2,000 UNITS TAB/CAP PO SCH (09:29)
[2018-07-01] MEDS: MULTIVITAMINS 1 EACH TAB PO SCH (09:30)
[2018-07-01] MEDS: CITALOPRAM 20 MG TAB PO SCH (09:30)
[2018-07-01] MEDS: PRIMIDONE 50 MG TAB PO SCH ×2 (09:30→20:50)
[2018-07-01] MEDS: PROPRANOLOL HCL 40 MG TAB PO SCH ×2 (09:30→20:50)
[2018-07-01] MEDS: PANTOPRAZOLE SODIUM 20 MG PO SCH (09:30)
[2018-07-01] MEDS: FUROSEMIDE 120 MG in D5W 50 ML IV SCH ×2 (09:31→17:03)
[2018-07-01] MEDS: PSYLLIUM METAMUCIL 1 PKT PO SCH ×2 (09:31→17:07)
--- NOTE | 2018-07-01 16:02 | HOSPPROG ---
Hospitalist Progress Note Assessment/Plan: # R sided CHF - anasarca is improving; decreased scrotal edema - there may be some component of lymphedema - i think for now we should continue diuresis as his edema is improving # a-fib/ppm - warfarin and dilt # urothelial ca, metastatic - follows at - last chemo 3 weeks ago - has another immunologic infusion Tuesday # lymphedema - follow with outpatient specialist - he is going to establish with a new PT # essential tremor - primidone and propranolol # gout - allopurinol # CKD - baseline Subjective: has been walking for an hour today Objective: Vital Signs Temp Pulse Resp BP Pulse Ox 36.3 C 79 18 116/79 94 07/01/18 12:00 07/01/18 12:00 07/01/18 12:00 07/01/18 12:00 07/01/18 12:00 Laboratory Results 06/27/18 17:25 07/01/18 03:25 06/30/18 07/01/18 07/02/18 05:59 05:59 05:59 Intake Total 1540 275 Output Total 1975 2550 1650 Balance -435 -2275 -1650 PT 29.0 SEC (12.0-15.0) H 07/01/18 03:25 INR 2.92 (0.83-1.16) H 07/01/18 03:25 - Physical Exam Constitutional: no apparent distress, appears nourished Cardiovascular: regular rate and rhythym, no murmur, rub, or gallop Respiratory: no respiratory distress, no rales or rhonchi, clear to auscultation Gastrointestinal: soft, non-tender abdomen, no palpable masses Musculoskeletal: other (2+ bilat LE edema to knees) ICD10 Worksheet Patient Problems: Problems Problem Status Onset Chronic Disease Mgmt/Transitional Care Acute Dehiscence of fascia Acute Post-operative complication Acute
[2018-07-01] MEDS: TAMSULOSIN HCL 0.4 MG CAP PO SCH (20:45)
[2018-07-01] MEDS: WARFARIN SODIUM 4 MG TAB PO SCH (20:46)
[2018-07-02 05:02] LABS: INR 2.56 (0.83-1.16); PROTIME(PATIENT) 26.2 SEC (12.0-15.0)
[2018-07-02] MEDS ORDERED: POTASSIUM CL 10 MEQ TAB PO ONE ×2 (08:43→19:28)
[2018-07-02] MEDS: MULTIVITAMINS 1 EACH TAB PO SCH (09:20)
[2018-07-02] MEDS: CITALOPRAM 20 MG TAB PO SCH (09:20)
[2018-07-02] MEDS: CHOLECALCIFEROL VIT D3 2,000 UNITS TAB/CAP PO SCH (09:21)
[2018-07-02] MEDS: DILTIAZEM CD 120 MG CAP PO SCH ×2 (09:21→21:33)
[2018-07-02] MEDS: PRIMIDONE 50 MG TAB PO SCH ×2 (09:21→21:32)
[2018-07-02] MEDS: PROPRANOLOL HCL 40 MG TAB PO SCH ×2 (09:21→21:33)
[2018-07-02] MEDS: ALLOPURINOL 300 MG TAB PO SCH (09:21)
[2018-07-02] MEDS: PANTOPRAZOLE SODIUM 20 MG PO SCH (09:21)
[2018-07-02] MEDS: PSYLLIUM METAMUCIL 1 PKT PO SCH (09:22)
[2018-07-02] MEDS: FUROSEMIDE 120 MG in D5W 50 ML IV SCH ×2 (09:22→16:53)
--- NOTE | 2018-07-02 10:05 | HOSPPROG ---
Hospitalist Progress Note Assessment/Plan: # R sided CHF - anasarca is improving; decreased scrotal edema - there may be some component of lymphedema - he continues to diurese thus would continue with lasix 120 iv bid # a-fib/ppm - warfarin and dilt # urothelial ca, metastatic - follows at - last chemo 3 weeks ago - has another immunologic infusion Tuesday # lymphedema - follow with outpatient specialist - he is going to establish with a new PT # essential tremor - primidone and propranolol # gout - allopurinol # CKD - baseline Subjective: feels that his legs are smaller Objective: Vital Signs Temp Pulse Resp BP Pulse Ox 36.3 C 80 16 110/74 93 07/02/18 07:59 07/02/18 07:59 07/02/18 07:59 07/02/18 07:59 07/02/18 07:59 Laboratory Results 06/27/18 17:25 07/02/18 03:30 07/01/18 07/02/18 07/03/18 05:59 05:59 05:59 Intake Total 275 1050 540 Output Total 2550 3700 200 Balance -2275 -2650 340 PT 26.2 SEC (12.0-15.0) H 07/02/18 03:30 INR 2.56 (0.83-1.16) H 07/02/18 03:30 - Physical Exam Constitutional: no apparent distress, appears nourished Cardiovascular: regular rate and rhythym, no murmur, rub, or gallop Respiratory: no respiratory distress, no rales or rhonchi, clear to auscultation Gastrointestinal: soft, non-tender abdomen, no palpable masses, No guarding, No rebound Musculoskeletal: other (2+ bilat LE edema to knees) Neurologic: AAOx3 ICD10 Worksheet Patient Problems: Problems Problem Status Onset Chronic Disease Mgmt/Transitional Care Acute Dehiscence of fascia Acute Post-operative complication Acute
--- NOTE | 2018-07-02 12:55 | PDCARPN ---
Cardiology Progress Note Assessment/Plan: Assessment/Plan: 82-year-old male with heart failure with preserved ejection fraction and right heart failure; permanent atrial fibrillation with pacemaker; urothelial cancer with metastases; valvular heart disease; chronic renal insufficiency. Admitted from Cardiology Clinic with anasarca. Has diuresed 12 kg since admission and remains on high-dose IV Lasix twice daily. 1. Heart failure with preserved ejection fraction/right heart failure: Continue IV Lasix. Continue transition to oral diuretics tomorrow. Past problems with worsening renal failure on other diuretics. 2. Atrial fibrillation and pacemaker: Continue propanolol, diltiazem, warfarin. 3. Valvular heart disease: Moderate aortic regurgitation, severe tricuspid regurgitation, mild mitral regurgitation. He also has pulmonary hypertension. This complicates diuresis. He does not seem to be a good candidate for cardiac surgery. 4. Chronic renal insufficiency: Stable even with diuresis. 5. Urothelial cancer with metastatic disease. Followed at the [place]. part of his MACY may be lymphedema. He is on an immune checkpoint inhibitor ( atezolizumab); this class of drugs can cause edema and rarely myocarditis. He does not appear to have the latter which is usually fulminant. 07/02/18 12:56 Subjective: Feels fairly well. Has been walking without lightheadedness. Denies chest pain or dyspnea. He reports continued improvement in his lower extremity edema and near resolution of his scrotal edema. He does note that he has had some degree of lower extremity edema for several months now. Objective: Vital Signs (8 Hrs) Temp Pulse Resp BP Pulse Ox 07/02/18 11:44 36.5 C 73 16 108/76 95 07/02/18 07:59 36.3 C 80 16 110/74 93 Intake/Output (24 Hrs) 07/01/18 07/02/18 07/03/18 05:59 05:59 05:59 Intake Total 275 1050 540 Output Total 2550 3700 200 Balance -2275 -2650 340 Intake: Oral (ml) 200 800 540 IV Infused (ml) 75 250 Furosemide 120 mg In D5w 75 250 50 ml @ 124 mls/hr IV BIDDIUR [facility] Rx#: [id number] Output: Urine (ml) 2550 3700 200 Urinal 2550 3700 200 Other: Weight 82.7 kg 80.8 kg Number of Voids Urinal 1 2 Number of Stools Urinal 1 No acute distress. Sitting up in chair. JVP 12 cm water. Regular rate and rhythm with 2/6 holosystolic murmur at the left lower sternal border and at the apex. Lungs clear to auscultation bilaterally without wheezes, rhonchi rales 1+ pitting edema to the midshin bilaterally. Stigmata of chronic venous stasis. Alert and oriented x3 without gross focal neurologic deficits. Appropriate mood and affect. Result Diagrams: 06/27/18 17:25 07/02/18 03:30 Telemetry: Underlying atrial fibrillation with ventricular pacing ICD10 Worksheet Patient Problems: Problems Problem Status Onset Chronic Disease Mgmt/Transitional Care Acute Dehiscence of fascia Acute Post-operative complication Acute
[2018-07-02] MEDS: ACETAMINOPHEN 325 MG TAB PO PRN (13:03)
[2018-07-02] MEDS: TAMSULOSIN HCL 0.4 MG CAP PO SCH (21:33)
[2018-07-02] MEDS: WARFARIN SODIUM 4 MG TAB PO SCH (21:33)
[2018-07-03 04:30] LABS: INR 2.44 (0.83-1.16); PROTIME(PATIENT) 25.3 SEC (12.0-15.0)
[2018-07-03] MEDS: PROPRANOLOL HCL 40 MG TAB PO SCH (09:59)
[2018-07-03] MEDS: CHOLECALCIFEROL VIT D3 2,000 UNITS TAB/CAP PO SCH (09:59)
[2018-07-03] MEDS: ALLOPURINOL 300 MG TAB PO SCH (09:59)
[2018-07-03] MEDS: CITALOPRAM 20 MG TAB PO SCH (09:59)
[2018-07-03] MEDS: PRIMIDONE 50 MG TAB PO SCH (10:00)
[2018-07-03] MEDS: PANTOPRAZOLE SODIUM 20 MG PO SCH (10:01)
[2018-07-03] MEDS: MULTIVITAMINS 1 EACH TAB PO SCH (10:01)
[2018-07-03] MEDS: PSYLLIUM METAMUCIL 1 PKT PO SCH (10:01)
[2018-07-03] MEDS: DILTIAZEM CD 120 MG CAP PO SCH (10:02)
[2018-07-03] MEDS: FUROSEMIDE 120 MG in D5W 50 ML IV SCH (10:02)
[2018-07-03] MEDS ORDERED: POTASSIUM CL 10 MEQ TAB PO ONE (10:12)
--- NOTE | 2018-07-03 11:23 | HOSPPROG ---
Hospitalist Progress Note Assessment/Plan: # R sided CHF - anasarca is improving; decreased scrotal edema - suspect some component of lymphedema, but markedly less edema than on admission - cont lasix 120iv BID; likely close to dry weight; defer to cards, but anticipate transition to PO diuretics soon and dc soon # a-fib/ppm - warfarin and dilt # urothelial ca, metastatic - follows at - last chemo 3 weeks ago - had another Tecentriq infusion scheduled for today # lymphedema - follow with outpatient specialist - he is going to establish with a new PT # essential tremor - primidone and propranolol # gout - allopurinol # CKD - baseline Subjective: still feels well Objective: Vital Signs Temp Pulse Resp BP Pulse Ox 36.5 C 74 12 125/85 H 91 L 07/03/18 08:00 07/03/18 08:00 07/03/18 08:00 07/03/18 08:00 07/03/18 08:00 Laboratory Results 06/27/18 17:25 07/03/18 03:10 07/02/18 07/03/18 07/04/18 05:59 05:59 05:59 Intake Total 1050 2220 Output Total 3700 3325 Balance -2650 -1105 PT 25.3 SEC (12.0-15.0) H 07/03/18 03:10 INR 2.44 (0.83-1.16) H 07/03/18 03:[address] Romero's note tele personally reviewed - paced - Physical Exam Constitutional: no apparent distress, appears nourished Cardiovascular: regular rate and rhythym, no murmur, rub, or gallop Respiratory: no respiratory distress, no rales or rhonchi, clear to auscultation Gastrointestinal: normoactive bowel sounds Musculoskeletal: other (1+ bilat LE edema) ICD10 Worksheet Patient Problems: Problems Problem Status Onset Chronic Disease Mgmt/Transitional Care Acute Dehiscence of fascia Acute Post-operative complication Acute
[2018-07-03 12:06] VITALS: BP 102/77
--- NOTE | 2018-07-03 13:42 | ASMTCMCOM ---
CM Note CM Note Notes: 07/03/2018 Case Management Note Reviewed chart. Discussed with RN. PT recommending home with outpatient rehab. OT cleared for home. There are no identified case management d/c needs. Case Management d/c poc: independent with follow up as directed. Case Management available if needs change. Date Signed: 07/03/2018 01:42 PM Electronically Signed By:Abbie Mathis RN
--- NOTE | 2018-07-03 14:36 | ASDISCHSUM ---
Discharge Information Plan Status:Home with No Needs Medically Cleared to Leave:07/02/2018 Discharge Date:07/02/2018 CM D/C Disposition:Home, Routine, Self-Care ADT D/C Disposition:Home, Routine, Self-Care Projected Discharge Date:07/02/2018 Transportation at D/C: Discharge Delay Reason: Follow-Up Date:07/02/2018 Discharge Slot: Final Diagnosis: Placement Information Patient Contact Information Contact Name:JER Relationship: Address:[address] City:[place] Alternate Phone: [facility]/Zip Code:[place] [address] Email: Financial Information Financial Class:Medicare Primary Plan Desc:MEDICARE INPATIENT Primary Plan Number:[id number] Secondary Plan Desc:[facility] Secondary Plan Number:[id number] Assessment Information LACE LACE Length of stay for Answers: 4-6 days current admission Acuity / Level of Answers: Yes Care: Did the patient have an inpatient admission? Comorbidities - select Answers: Congestive heart failure all that apply Opioid dependence / Chronic pain Other Notes: HTN # of Emergency department Answers: 0 visits in the last 6 months Score: 14 Date Signed: 07/03/2018 02:33 PM Electronically Signed By:Abbie Mathis RN [facility] CM Progress Note CM Note CM Note Notes: Pt is a 82 year old M, lives with who is supportive. Presents with CHF, edema, and renal insufficiency. Pt was last discharged independent with home O2 in May of this year. PT/OT evals are pending. Pt may benefit from home care. CM to follow. Plan: TBD Date Signed: 06/28/2018 09:36 AM Electronically Signed By:ADRIENNE Lloyd [facility] CM Progress Note CM Note CM Note Notes: After review of chart, anticipate patient will be safe to discharge home with . CM is available should need arise. Plan: Likely independent with outpatient rehab follow-up. Date Signed: 06/29/2018 02:40 PM Electronically Signed By:Karol Lopez RN [facility] CM Progress Note CM Note CM Note Notes: Therapies are recommending home with outpatient follow-up. Patient to d/c independent. CM available if needs arise. Date Signed: 06/30/2018 02:59 PM Electronically Signed By:Verona Floyd LCSW [facility] CM Progress Note CM Note CM Note Notes: 07/03/2018 Case Management Note Reviewed chart. Discussed with RN. PT recommending home with outpatient rehab. OT cleared for home. There are no identified case management d/c needs. Case Management d/c poc: independent with follow up as directed. Case Management available if needs change. Date Signed: 07/03/2018 01:42 PM Electronically Signed By:Abbie Mathis RN Case Management Discharge Plan Note Case Management Discharge Discharge Order Complete? Answers: Yes Patient to Obtain Answers: via Family Medications Transportation Arranged Answers: Family/Friends Discharge Comments Notes: 07/03/2018 Case Management Note PT and OT cleared pt for home. There are no identified case management d/c needs. Case Management d/c poc: independent with follow up as directed. Date Signed: 07/03/2018 02:35 PM Electronically Signed By:Abbie Mathis RN Intervention Information Intervention Type:*Incorrect Registration Date of Service:06/27/2018 10:25 AM Patient Type:Observation Staff Member:ARTURO Cabrera Courtney Hours: Discipline: Severity: Comment:
--- NOTE | 2018-07-03 14:41 | GDS ---
[f rep st] DISCHARGE SUMMARY ALL DIAGNOSES: 1. Suspected right-sided congestive heart failure. 2. Atrial fibrillation with a pacemaker. 3. Urothelial cancer which is metastatic followed at [facility]. 4. Likely lymphedema. 5. Essential tremor. 6. Gout. 7. Chronic kidney disease. HOSPITAL COURSE: An 82-year-old man admitted from Cardiology Clinic for anasarca. He has been diuresed aggressively with furosemide. His weight is down from 92 kg to 79 kg on the day of discharge. I think he is approximately at his dry weight today. His BUN has crept up slightly. We have not used additional diuretics with him as he has had significant worsening of his renal function on multiple diuretics. I have discussed this with Dr. Young on the day of discharge. His last furosemide dose was 120 mg IV twice daily. His home dose was 20 mg daily. We will put him on 40 mg p.o. twice daily plus 20 mEq of potassium on discharge. I have given him instructions to follow his weight. There certainly may be some component of lymphedema, he is scheduled to have a CT scan at the [place] soon. He will follow up with Dr. Jones for treatment of his urothelial cancer. He is due for an infusion of Tecentriq very soon. DISPOSITION: Discharged home in stable condition. FOLLOWUP: 1. Sachin Florence MD. 2. Dr. Jones. BILLING: I spent more than 30 minutes on the day of discharge coordinating care. /[id number]/MODL MTDD
[2018-07-03] MEDS ORDERED: WARFARIN SODIUM 4 MG TAB PO SCH (21:00)
--- NOTE | 2018-07-04 14:56 | CPEKG ---
Test Reason : OPEN Blood Pressure : / mmHG Vent. Rate : 071 BPM Atrial Rate : 000 BPM P-R Int : 064 ms QRS Dur : 175 ms QT Int : 467 ms P-R-T Axes : 000 267 092 degrees QTc Int : 508 ms Ventricular-paced rhythm Confirmed by Shaq Mcarthur ([id number]) on 07/04/2018 2:56:36 PM Referred By: CONRAD GONZALEZ Confirmed By:Shaq Mcarthur
== END 2018-07-03 15:17 | disposition home or self-care (01) | DRG 291 ==
LOC: OBSVTOIN 16:40 → F2W 16:40
PROVIDERS: ADMIT Internal Medicine Interventional Cardiology; ATTEND Student in an Organized Health Care Education/Training Program
DX: I13.0 Hypertensive heart and chronic kidney disease with heart failure and stage 1 through stage 4 chronic kidney disease, or unspecified chronic kidney disease (principal); I50.31 Acute diastolic (congestive) heart failure; N18.9 Chronic kidney disease, unspecified; I89.0 Lymphedema, not elsewhere classified; C77.9 Secondary and unspecified malignant neoplasm of lymph node, unspecified; I48.2 Chronic atrial fibrillation; I08.3 Combined rheumatic disorders of mitral, aortic and tricuspid valves; I25.10 Atherosclerotic heart disease of native coronary artery without angina pectoris; E78.5 Hyperlipidemia, unspecified; I27.20 Pulmonary hypertension, unspecified; G25.0 Essential tremor; K21.9 Gastro-esophageal reflux disease without esophagitis; M10.9 Gout, unspecified; Z79.01 Long term (current) use of anticoagulants; Z95.0 Presence of cardiac pacemaker; Z85.51 Personal history of malignant neoplasm of bladder
CPT/HCPCS: 97116-GP; 97161-GP; 97166-GO; 97535-GO; J1940